=== PATIENT | male | born 1960 | race Caucasian/White ===

== ENCOUNTER → 2017-08-13 | Day surgery (SDC) | payer MEDICARE ==
[2017-08-05 10:29] VITALS: BMI 65.0
[2017-08-11 11:49] VITALS: Ht 177.8 cm; Wt 212.9 kg
[~2017-08-13] VITALS: Ht 177.8 cm; Wt 212.9 kg
[~2017-08-13] MED LIST: 500ML BSS 0.3ML EPI 1:1000PF IRRIG ONE; ACETAMINOPHEN 325 MG TAB PO PRN; AMVISC PLUS 0.8ML SYRINGE INT OCU ONE; ATROPINE SULFATE 0.1 MG/ML 5ML SYR IV PRN; AcetaZOLAMIDE 250 MG TAB PO SCH; BETAXOLOL HCL 0.25% OP SUSP PER DROP CHARGE OPR SCH; BRIMONIDINE TART 0.2% OP SOLN PER DROP CHARGE ONE; BSS FLUSH ONE; CARV25TA2 PO; CYCL10TA6 PO; ENDOCOAT 0.85ML SYRINGE INT OCU ONE; EpHEDrine SULFATE INJ 50 MG/ML AMP IV PRN; EpINEphrine INJ 1MG/ML AMP 1 MG/ML AMP ONE; FRS/40 PO; HYDR-4717 PO; ISOS30TA3 PO; LACTATED RINGER'S 1000ML 500 ML IV SCH; LIDOCAINE 4% OP SOLN DROP CHARGE ONE; LIDOCAINE 4% OP SOLN DROP CHARGE OPR SCH; LIDOCAINE HCL 1% MPF 2 ML VIAL ONE; LOSA1TAB38 PO; MIDAZOLAM HCL 1 MG/ML 2ML VIAL ONE; MIX: 4ML BSS 1ML EPI 1:1000 PF INSTIL ONE; MOXIFLOXACIN OPH SOLN PER DROP CHARGE ONE; NAPR-1168 PO; OCUCOAT 1 ML SOLN IO ONE; PANT40TA PO; POVIDONE-IODINE OP SOLN 30 ML BTL ONE; PROPARACAINE 0.5% OP SOLN PER DROP CHARGE OPR SCH; SUCR1TAB PO; TOBRAMYCIN/DEXAMETHASONE OPH OINT PER APPLN CHARGE ONE
--- NOTE | 2017-08-13 07:57 | History & Physical Bridge - [place] ---
H&P Re-Evaluation Bridge Note: I have examined the patient, reviewed the History & Physical and in the interval since the performance of the History & Physical I have noted the following changes of clinical significance: No changes noted
[2017-08-13] MEDS: PHENYLEPHRINE HCL 2.5% OP SOLN PER DROP CHARGE OPR SCH ×2 (09:29→09:33)
[2017-08-13] MEDS: TROPICAMIDE 1% OP SOLN PER DROP CHARGE OPR SCH ×2 (09:30→09:34)
[2017-08-13] MEDS: CYCLOPENTOLATE HCL 1% OP SOLN PER DROP CHARGE OPR SCH ×2 (09:31→09:36)
[2017-08-13] MEDS: MOXIFLOXACIN OPH SOLN PER DROP CHARGE OPR SCH ×2 (09:32→09:38)
--- NOTE | 2017-08-13 10:07 | [facility] Operative Report ---
Operative Report Date of Service Aug 13, 2017. Operative Report 1. PREOPERATIVE DIAGNOSIS: Pre Senile Posterior Subcapsular Cataract, right eye. 2. POSTOPERATIVE DIAGNOSIS: Pre Senile Posterior Subcapsular Cataract, right eye. 3. PROCEDURE: Phacoemulsification of right cataract with posterior chamber lens implant, type Sagar, model [id number], power +18.5 diopters. ANESTHESIA: Local standby. SURGEON: Dr. Crenshwa. COMPLICATIONS: None. OPERATING TIME: 10 minutes. 4. OPERATION AND FINDINGS: DESCRIPTION OF PROCEDURE: The right pupil was dilated. The anesthetic was administered using a topical technique. The right eye was prepped and draped. A speculum was placed. A clear corneal incision was formed. The chamber was filled with Amvisc Plus and Endocoat. Epinephrine solution was used. A paracentesis was placed. A capsulorrhexis was performed. The nucleus was hydrodissected. The lens was removed with phacoemulsification. Time was 1.93 seconds. The aspiration unit was used to remove the cortex. The capsule was filled with Amvisc Plus. The lens implant was folded and placed into the capsule. The lens implant was rotated to the correct position. The incision was hydrated. The Amvisc was aspirated. The wound was secure. The chamber was deep. The pupil was round. Brimonidine, TobraDex ointment and Vigamox solution were placed. The speculum was removed. The patient was returned to the Recovery Room in stable condition. I attest to the content of the Intraoperative Record and any orders documented therein. Any exceptions are noted below. The scribe's documentation has been prepared in my presence, under my direction and personally reviewed by me in its entirety. I confirm that the note above accurately reflects all work, treatment, procedures, and medical decision making performed by me. I personally scribed for Bib Crenshaw M.D. ([email or web address]) on 08/13/17 at 10:07. Electronically submitted by Vicki HOWARD).
--- NOTE | 2017-08-13 10:09 | Discharge Instructions-SurgCtr ---
Discharge Instructions Date of Service Aug 13, 2017. Visit Reason for Visit: Cataract Right Eye Discharge Discharge Diagnosis / Problem: lens implant right eye Discharge Goals Goal(s): Improve function Activity Recommendations Activity Limitations: resume your previous activity Lifting Limitations: no more than 10 pounds Exercise/Sports Limitations: gradually increase as tolerated May Resume Sexual Activity: when tolerated Shower/Bathe: tomorrow Driving or Machine Use: resume 1 day after discharge Anesthesia . Post Anesthesia Instructions: If you have had General Anesthesia or IV Sedation: * Do not drive today. * Resume driving when surgeon permits. * Do not make important decisions or sign legal documents today. * Call surgeon for: 1. Temperature elevations greater than 101 degrees F. 2. Uncontrollable pain. 3. Excessive bleeding. 4. Persistent nausea and vomiting. 5. Medication intolerance (nausea, vomiting or rash). * For nausea and vomiting use only clear liquids such as: tea, soda, bouillon until nausea subsides, then gradually increase diet as tolerated. * If you have any concerns or questions, call your surgeon's office. If physician is unavailable and it is an emergency, call 911 or go to the nearest emergency room. . Instructions / Follow-Up Instructions / Follow-Up ACTIVITY RECOMMENDATIONS: * Light activities. * Mild irritation and blurred vision are common for the first few days. * You may walk outside, read, watch television. * Redness around the white part of the eye is common. MEDICATIONS: Resume previous medications unless instructed otherwise by your surgeon. * Take white Diamox (Acetazolamide) tablet at 1 pm today. Start all eye drops at 1 pm today: * Eye drops (today and tomorrow): Prednisone - one drop in operative eye every 3 hours while awake Ofloxacin - one drop in operative eye every 3 hours while awake SPECIAL CARE INSTRUCTIONS: * Tape plastic shield over eye to sleep at night. Call your doctor at with any concerns or problems. FOLLOW UP VISIT: Follow-up with Dr Crenshaw at [facility] [place] as scheduled. Diet Recommendations Home Diet: no limitations Procedures Procedures Performed: Right Cataract Phacoemulsification With Intraocular Lens Implant; Toric Lens Pending Studies Studies pending at discharge: no Medical Emergencies . Who to Call and When: Medical Emergencies: If at any time you feel your situation is an emergency, please call 911 immediately. . Non-Emergent Contact Non-Emergency issues call your: Psychology Lecturer Call Non-Emergent contact if: your pain is not controlled [phone] . . "Provider Documentation" section prepared by Bib Crenshaw. .
[2017-08-13 10:13] VITALS: TEMP 36.4
[2017-08-13 10:28] VITALS: BP 135/62; PULSE 71; O2SAT 94
--- NOTE | 2017-08-13 10:36 | Anesthesia Progress Nt - [facility] ---
Anesthesia Post Op Note Date & Time Aug 13, 2017 at 10:35 Vital Signs Pain Intensity: 0 Vital Signs Past 12 Hours Date Time Temp Pulse Resp B/P (MAP) Pulse Ox O2 Delivery O2 Flow Rate FiO2 08/13/17 10:28 71 16 135/62 (86) 94 Room Air 08/13/17 10:13 36.4 67 16 113/74 (87) 97 Room Air 08/13/17 09:21 36.5 70 24 166/97 (120) 97 Room Air Notes Mental Status: alert / awake / arousable, participated in evaluation Pt Amnestic to Procedure: Yes Nausea / Vomiting: adequately controlled Pain: adequately controlled Airway Patency, RR, SpO2: stable & adequate BP & HR: stable & adequate Hydration State: stable & adequate Anesthetic Complications: no major complications apparent
== END | disposition home or self-care (01) ==
LOC: X.SURG 08-11 11:11
PROVIDERS: ATTEND Specialist
DX: H26.8 Other specified cataract (principal); E66.01 Morbid (severe) obesity due to excess calories; I10 Essential (primary) hypertension; Z91.013 Allergy to seafood